=== PATIENT | male | born 1975 | race African-American/Black ===

== ENCOUNTER 2017-10-14 11:22 | Emergency (ER) | payer SELFPAY ==
[~2017-10-14] VITALS: Ht 172.7 cm; Wt 79.0 kg
[2017-10-14 11:40] VITALS: BP 179/109
== END 2017-10-14 14:23 | disposition home or self-care (01) ==
LOC: ER 11:22
DX: J06.9 Acute upper respiratory infection, unspecified (principal); I10 Essential (primary) hypertension; F17.200 Nicotine dependence, unspecified, uncomplicated; F12.10 Cannabis abuse, uncomplicated; R05 Cough
CPT/HCPCS: 71045; 99283

== ENCOUNTER 2018-07-01 17:26 | Emergency (ER) | payer SELFPAY ==
[~2018-07-01] VITALS: Ht 180.3 cm; Wt 87.0 kg
[2018-07-01 20:27] VITALS: BP 156/95
== END 2018-07-01 20:28 | disposition home or self-care (01) ==
LOC: ER 17:26
DX: M19.041 Primary osteoarthritis, right hand (principal); I10 Essential (primary) hypertension; F12.10 Cannabis abuse, uncomplicated
CPT/HCPCS: 99281

== ENCOUNTER 2022-01-01 12:23 | Emergency (ER) | payer MEDICAID ==
[~2022-01-01] VITALS: Ht 172.7 cm; Wt 91.0 kg
[~2022-01-01 12:23] MED LIST: CEPH500C2 MT; IBUP-2028 MT; SULF1TAB48 MT
[2022-01-01 12:42] VITALS: BP 230/131
[2022-01-01] MEDS ORDERED: AMLO10TA80 MT (14:14)
[2022-01-01] MEDS ORDERED: HYDR25TA MT (14:15)
== END 2022-01-01 14:31 | disposition home or self-care (01) ==
LOC: ER 12:23
DX: M25.531 Pain in right wrist (principal); I10 Essential (primary) hypertension
CPT/HCPCS: 73110; 99283